=== PATIENT | female | born 1995 | race African-American/Black ===

== ENCOUNTER → 2022-09-22 | Outpatient (CLI) | payer OTHER | END | disposition home or self-care (01) | LOC: LABMN 10:25 | PROVIDERS: ATTEND Chiropractor | DX: S82.302A Unspecified fracture of lower end of left tibia, initial encounter for closed fracture (principal); M79.89 Other specified soft tissue disorders; E55.9 Vitamin D deficiency, unspecified; R07.9 Chest pain, unspecified; X58.XXXA Exposure to other specified factors, initial encounter; Y93.89 Activity, other specified; Y92.89 Other specified places as the place of occurrence of the external cause; Y99.8 Other external cause status | CPT/HCPCS: 71046; 82306 ==